=== PATIENT | male | born 2000 | race African-American/Black ===

== ENCOUNTER 2025-04-22 17:28 | Emergency (ER) | payer SELFPAY ==
[~2025-04-22] VITALS: Ht 185.4 cm; Wt 100.0 kg
[2025-04-22 18:08] VITALS: TEMP 37.1; O2SAT 100
[2025-04-22] MEDS ORDERED: POLY17PO3 MT (22:13)
[2025-04-22] MEDS ORDERED: HYDR30CR80 TP (22:13)
[2025-04-22 22:21] VITALS: BP 135/82; PULSE 113; RESP 18; O2SAT 98
== END 2025-04-22 22:26 | disposition home or self-care (01) ==
LOC: ER 17:28
DX: K64.4 Residual hemorrhoidal skin tags (principal); I10 Essential (primary) hypertension; Z88.2 Allergy status to sulfonamides; Z90.49 Acquired absence of other specified parts of digestive tract
CPT/HCPCS: 99283